=== PATIENT | male | born 1965 | race Caucasian/White ===

== ENCOUNTER 2022-12-12 17:35 | Emergency (ER) | payer OTHER, SELFPAY ==
[2022-12-12 17:36] VITALS: BP 156/98; PULSE 103; RESP 16; TEMP 36.9; O2SAT 100; BMI 32.7
--- NOTE | 2022-12-12 17:46 | CT_ITS ---
STUDY: CT BRAIN WITHOUT CONTRAST REASON FOR EXAM: Male, 57 years old. Head injury RADIATION DOSAGE (If Supplied By Facility): CTDIvol = ( 44.99 ) mGy, DLP = ( 798.92 ) mGycm TECHNIQUE: Transaxial CT imaging of the brain was performed without administration of intravenous contrast material. Individualized dose optimization techniques were used for this CT. COMPARISON: No relevant priors. FINDINGS: Normal soft tissue structures. Normal calvarium. Normal size ventricles and extra-axial spaces for the patient''s age. Normal white matter tracts of the cerebral hemispheres. There is dilated perivascular space of the right basal ganglia. Normal brainstem. Normal cerebellum. There is no intracranial hemorrhage. There are no findings of an acute ischemic infarction. There is mucosal thickening or fluid in the right maxillary sinus. CT/Brain/Head without Contrast IMPRESSION: Normal unenhanced CT scan of the brain. Electronically Signed: Contreras Frank MD at 19:09 EDT ,
--- NOTE | 2022-12-12 17:46 | CT_ITS ---
STUDY: CT CERVICAL SPINE WITHOUT CONTRAST REASON FOR EXAM: Male, 57 years old. Neck pain RADIATION DOSAGE (If Supplied By Facility): CTDIvol = ( 22.22 ) mGy, DLP = ( 448.08 ) mGycm TECHNIQUE: High resolution transaxial imaging was performed without contrast material. Sagittal and coronal images were reconstructed. Individualized dose optimization techniques were used for this CT. COMPARISON: None FINDINGS: Normal craniovertebral junction. Normal anterior atlantoaxial articulation. Normal odontoid process. There is straightening of the normal cervical lordosis. Normal vertebral bodies and posterior osseous elements. There is no acute fracture. C2-3: Normal endplates. Normal disc height and morphology. Facet spurring on the left. Normal central canal and intervertebral neuroforamina. C3-4: Mild spurring to the right. Normal central canal and intervertebral neuroforamina. C4-5: Mild spurring to the left. Normal central canal and intervertebral neuroforamina. C5-6: Disc space narrowing. Disc bulge and spurring. Mild facet spurring. No canal stenosis. Mild left foraminal narrowing. C6-7: Normal endplates. Normal disc height and morphology. Normal central canal and intervertebral neuroforamina. C7-T1: Normal endplates. Normal disc height and morphology. Normal central canal and intervertebral neuroforamina. Normal visualized soft tissue structures. CT/Spine Cervical without Contras IMPRESSION: Mild degenerative change. Electronically Signed: Contreras Frank MD at 19:15 EDT ,
--- NOTE | 2022-12-12 17:47 | EX.ED.GENINJ ---
HPI History of Present Illness Chief Complaint: Head Injury Narrative Narrative: 57-year-old male using a sledgehammer. He states that the metal part of the sledgehammer came off and hit him on top of the head. He describes feeling like he was going to faint initially but did not. Minimal amount he denies nausea, dizziness, lightheadedness. He does describe some neck pain after the injury. He did not fall or hit the ground. No paresthesias. patient not anticoagulated. PFSH PFSH Medical History no medical history Allergy/AdvReac Type Severity Reaction Status Date / Time No Known Allergies Allergy Verified 12/12/22 17:38 Surgical History no surgical history Social History Smoking Status: Never smoker ROS ROS ED Constitutional Constitutional ED: Denies chills or fever(s) Eyes Eyes: Denies change in vision or other ENT ENT ED: Denies rhinorrhea or sore throat Cardiovascular Cardiovascular: Denies chest pain or palpitations Respiratory/Chest Respiratory/Chest: Denies cough or dyspnea Gastrointestinal Gastrointestinal: Denies abdominal pain Genitourinary Genitourinary ED: Denies dysuria or hematuria Musculoskeletal Musculoskeletal: Reports neck pain; Denies arthralgias or back pain Integumentary Reports other Details: Dried blood on scalp. Superficial abrasions. Neurologic Neurologic: Reports headache(s); Denies paresthesias EXAM Physical Exam Const Vital Signs: 12/12/22 17:36 12/12/22 17:48 12/12/22 18:36 Temperature 98.4 F Temperature Source Oral Pulse Rate 103 H 70 Respiratory Rate 16 12 Respiratory Effort Normal Non-Labored Respiratory Depth Normal Respiratory Pattern Normal Blood Pressure 156/98 H 131/88 H Blood Pressure Mean 117 102 Pulse Ox 100 97 100 Oxygen Delivery Method Room Air Room Air Room Air 12/12/22 19:00 12/12/22 19:51 Temperature Temperature Source Pulse Rate 83 78 Respiratory Rate 17 15 Respiratory Effort Respiratory Depth Respiratory Pattern Blood Pressure 139/85 H 133/91 H Blood Pressure Mean 103 Pulse Ox 98 97 Oxygen Delivery Method Room Air Positive well nourished General Appearance ED: NAD HEENT Reports TM's clear HEENT Narrative: Superficial scalp abrasions dried blood on the scalp at the vertex. There is some swelling here.. No active bleeding. Tympanic Membrane ED: Yes TM's clear Eyes PERRL Neck Neck Narrative: Tenderness palpation right cervical paraspinal musculature Resp normal respiratory effort Extremity normal to inspection Neuro oriented x3, CN's II-XII intact bilaterally, moves all extremities and no sensory deficits noted Tana Coma Scale: document GCS findings Spontaneous Obeys Commands Oriented 15 Sensorium / Orientation: alert Motor Exam: strength 5/5 throughout Psych mental status grossly normal Skin Skin Narrative: As described above MDM MDM MDM Narrative Medical decision making narrative: Patient presenting after injury with a sledgehammer head flying off and hitting him in the top of his head. No LOC but he did feel lightheaded and dizzy for a second. He is also having some mild right-sided neck pain. Patient reports that the head of the sledgehammer was about 8 pounds. He has some superficial bleeding which is stopped. There is no lacerations that need to be sutured. CT of the brain and cervical spine are negative for acute fracture or intracranial process.Patient given Tylenol for pain. At this point I feel the patient safe for discharge. Return precautions discussed. He declines a dressing. Impression: 1. Closed head injury 2. Superficial laceration Radiography Diagnostic Testing: Clinical Impression(s) from Imaging Studies Brain CT 12/12/22 17:46 IMPRESSION: Normal unenhanced CT scan of the brain. Electronically Signed: Contreras Frank MD at 19:09 EDT , Cervical Spine CT 12/12/22 17:46 IMPRESSION: Mild degenerative change. Electronically Signed: Contreras Frank MD at 19:15 EDT , Discharge Plan Triage Chief Complaint: Head Injury ED Provider: Calvin Arboleda Dx/Rx/DC Orders Instructions: ED Head Injury (Adult), ED Laceration Small or ... Primary Care Provider: NOT,DEFINED Referrals: NOT,DEFINED [Primary Care Provider] - Disposition Disposition: Home, Self Care
[2022-12-12 17:48] VITALS: O2SAT 97
[2022-12-12 18:36] VITALS: BP 131/88; PULSE 70; RESP 12; O2SAT 100
[2022-12-12 19:00] VITALS: BP 139/85; PULSE 83; RESP 17; O2SAT 98
[2022-12-12] MEDS: Acetaminophen 500 MG Tablet 1000 MG PO (19:12)
[2022-12-12 19:51] VITALS: BP 133/91; PULSE 78; RESP 15; O2SAT 97
== END 2022-12-12 20:09 | disposition home or self-care (01) ==
PROVIDERS: Emergency Provider Student in an Organized Health Care Education/Training Program; Visit Provider Student in an Organized Health Care Education/Training Program
DX: S09.90XA Unspecified injury of head, initial encounter (principal); S01.91XA Laceration without foreign body of unspecified part of head, initial encounter; W22.8XXA Striking against or struck by other objects, initial encounter
CPT/HCPCS: 70450; 72125; 99284